=== PATIENT | female | born 1965 | race Caucasian/White ===

== ENCOUNTER 2021-09-03 06:04 | Day surgery (SDC) | payer OTHER ==
[~2021-09-03] VITALS: Ht 165.1 cm; Wt 62.3 kg
[~2021-09-03 06:04] MED LIST: GABA-529 PO; LEVO50TA11 PO; SODIUM CHLORIDE 0.9% 1,000 ML ONE
[2021-09-03] MEDS ORDERED: ALBUTEROL SULFATE 2.5 MG/0.5 ML NEB SOLUTION NEB ONE (06:05)
[2021-09-03] MEDS ORDERED: BENZOCAINE 20% 50 MCG/SPRAY 57 GM TP ONE (06:05)
[2021-09-03] MEDS ORDERED: LIDOCAINE 2% 30 ML JELLY TP ONE (06:05)
[2021-09-03 06:29] LABS: COVID AG,FIA SOURCE NASOPHARYNGEAL
[2021-09-03] MEDS ORDERED: SODIUM CHLORIDE 0.9% 1,000 ML IV ONE (06:30)
[2021-09-03] MEDS ORDERED: SODIUM CHLORIDE 0.9% 1,000 ML ONE (06:51)
[2021-09-03] MEDS ORDERED: FentaNYL CITRATE PF 100 MCG/2 ML VIAL ONE (08:00)
[2021-09-03] MEDS ORDERED: MIDAZOLAM HCL 5 MG/ML VIAL ONE (08:00)
[2021-09-03] MEDS ORDERED: MethylPREDNISolone SOD SUCC 125 MG/2 ML VIAL ONE (08:30)
[2021-09-03] MEDS ORDERED: MethylPREDNISolone SOD SUCC 125 MG/2 ML VIAL IVP ONE ×2 (09:15→10:00)
[2021-09-03] MEDS ORDERED: OXYGEN THERAPY IH SCH (20:00)
== END 2021-09-03 11:15 | disposition home or self-care (01) ==
LOC: SURGERY 06:04
PROVIDERS: ATTEND Internal Medicine Critical Care Medicine
DX: J38.4 Edema of larynx (principal); Z98.890 Other specified postprocedural states; Z90.49 Acquired absence of other specified parts of digestive tract; Z79.899 Other long term (current) drug therapy
CPT/HCPCS: 31623; 31624; 71045; 87015; 87070; 87101; 87205; 87206; 87220; 87426; 88108; 88184; 88185; 88312; C9803; J2250; J2930; J3010; J7030; J7613